=== PATIENT | male | born 1960 | race Hispanic/Latino ===

== ENCOUNTER 2018-08-15 10:09 | Inpatient (IN) | payer SELFPAY ==
[2018-08-15] VITALS (9 sets, daily range): BP systolic 125–165; BP diastolic 34–68
[~2018-08-15] VITALS: Ht 170.2 cm; Wt 130.7 kg
[2018-08-15] MEDS ORDERED: HYDRALAZINE HCL 20 MG/ML VIAL IV STA (10:24)
[2018-08-15] MEDS ORDERED: ASPIRIN 81 MG CHEW TAB PO ONE (10:30)
[2018-08-15] MEDS ORDERED: FUROSEMIDE INJ 10 MG/ML 4 ML VIAL IV ONE ×2 (10:30→11:30)
--- NOTE | 2018-08-15 10:32 | NUR ---
xray at bedside for cxr
[2018-08-15] MEDS ORDERED: ALBUTEROL SULF 0.083% NEB SOLN 3 ML NEB NEB STA (10:34)
[2018-08-15] MEDS ORDERED: IPRATROPIUM BROMIDE 0.02% 2.5 ML NEB NEB STA (10:34)
[2018-08-15 11:04] LABS: BASOPHILS # (AUTO) 0.1 (0.0-0.1); BASOPHILS % 0.4 % (0.0-1.0); EOSINOPHILS # (AUTO) 0.4 (0.0-0.4); EOSINOPHILS % 2.2 % (0.0-6.0); HEMATOCRIT 36.4 % (34.2-44.1); HEMOGLOBIN 11.8 g/dL (12.0-16.0); LYMPHOCYTES # (AUTO) 2.1 (1.0-3.2); LYMPHOCYTES % 11.7 % (18.0-39.1); MEAN CORPUSCULAR HEMOGLOBIN 29.1 pg (28-32); MEAN CORPUSCULAR HGB CONC 32.4 g/dL (31-35); MEAN CORPUSCULAR VOLUME 89.7 fL (81-99); MONOCYTES # (AUTO) 1.2 (0.2-0.8); MONOCYTES % 6.9 % (4.4-11.3); NEUTROPHILS % 78.2 % (38.7-80.0); PLATELET COUNT 335 x10e3/uL (140-360); RED BLOOD COUNT 4.06 x10e6/uL (3.6-5.1); RED CELL DISTRIBUTION WIDTH 14.3 % (11.7-14.4)
[2018-08-15] MEDS ORDERED: CEFTRIAXONE SOD 1 GM/NS 50 ML 50 ML IV STA (11:05)
[2018-08-15 11:12] LABS: INR 0.99; PROTHROMBIN TIME 13.6 seconds (11.9-14.5)
[2018-08-15 11:13] LABS: PARTIAL THROMBOPLASTIN TIME 47.5 seconds (23.8-35.5)
[2018-08-15] MEDS ORDERED: NITROGLYCERIN 0.4 MG SUBL ONE (11:15)
[2018-08-15] MEDS ORDERED: NITROGLYCERIN 0.4 MG SUBL SL ONE (11:15)
[2018-08-15 11:21] LABS: ALBUMIN 2.6 g/dL (3.5-5.0); ALBUMIN/GLOBULIN RATIO 0.6 (0.8-2.0); ANION GAP 11.1 mmol/L (8-16); CALCIUM 8.4 mg/dL (8.4-10.2); CREATININE, SERUM 1.18 mg/dL (0.57-1.11); MAGNESIUM 2.4 MG/DL (1.3-2.1); POTASSIUM 4.1 mmol/L (3.5-5.1)
[2018-08-15] MEDS ORDERED: NITROGLYCERIN 2% OINT 1 GM PKT TOP ONE ×2 (11:30)
--- NOTE | 2018-08-15 11:39 | Diagnostic Imaging Report ---
Chest, 1 view, 08/15/2018. History: Shortness of breath. Comparison: None available. Findings: The cardiomediastinal silhouette and pulmonary vasculature are prominent with diffuse hazy bilateral pulmonary opacities. There are no acute osseous or soft tissue abnormalities. Impression: Findings suggestive of CHF. Signed by: Fred Epstein on 08/15/2018 11:36 AM
[2018-08-15 11:43] LABS: CREATINE KINASE MB 3.1 ng/mL (0-5.0); THYROID STIMULATING HORMONE 3.226 uIU/mL (0.350-4.940)
[2018-08-15 12:28] LABS: ABG HCO3 23 mmol/L (23-28); ABG PCO2 42 mmHg (41-51); ABG PH 7.35 (7.31-7.41); ABG PO2 123 mmHg (80-105)
[2018-08-15 12:44] LABS: CLARITY,URINE CLEAR (CLEAR); COLOR,URINE YELLOW (YELLOW); LEUKOCYTE ESTERASE ,URINE NEGATIVE (NEGATIVE)
[2018-08-15 12:45] LABS: BILIRUBIN,URINE NEGATIVE (NEGATIVE); KETONES,URINE NEGATIVE (NEGATIVE); NITRITE,URINE NEGATIVE (NEGATIVE); PROTEIN,URINE DIPSTICK 2+ (NEGATIVE); URINE UROBILINOGEN 0.2 mg/dL (0.2 - 1)
[2018-08-15 12:53] LABS: BACTERIA,URINE FEW /HPF; EPITHELIAL CELLS,URINE RARE /LPF
[2018-08-15] MEDS ORDERED: SODIUM CHLORIDE FLUSH 10 ML SYR INJ PRN (13:45)
[2018-08-15] MEDS ORDERED: ALBUTEROL SULF 0.083% NEB SOLN 3 ML NEB NEB SCH (13:45)
[2018-08-15] MEDS ORDERED: DEXTROSE 50% SYRINGE 50 ML IV PRN (13:45)
--- OUTSIDE RECORDS SUMMARY | 2018-08-15 13:59 | XMS REPORT ---
Author [facility] Address Unknown Phone Unavailable Care Team Providers Care Stone Operator Name Role Phone PATTIEARIELA Thomas LILIANA Unavailable Unavailable Problems This patient has no known problems. Allergies, Adverse Reactions, Alerts This patient has no known allergies or adverse reactions. Medications This patient has no known medications. Results Test Description Test Time Test Comments Text Results Atomic Results Result Comments CHEST SINGLE (PORTABLE) 2018-08-15 11:35:00 [place] [address] Patient Name: PINKY RUIZ MR #: [id number] : 1960 Age/Sex: 58/F Req #: [id number] Adm Physician: Ordered by: CHICA HUNTER FLY WINDER Report #: [id number] Location: ER Room/Bed: Procedure: [id number] DX/CHEST SINGLE (PORTABLE) Exam Date: 08/15/18 Exam Time: 1035 REPORT STATUS: Signed Chest, 1 view, 08/15/2018. History: Shortne ss of breath. Comparison: None available. Findings: The cardiomediastinal silhouette and pulmonary vasculature are prominent with diffuse hazy bilateral pulmonary opacities. There are no acute osseous or soft tissue abnormalities. Impression: Findings suggestive of CHF. Signed by: Chica Epstein on 08/15/2018 11:36 AM Dictated By: CHICA EPSTEIN MD [id number] Transcribed By: EDNA on 08/15/18 113 COPY TO: CHICA HUNTER NP
[2018-08-15] MEDS: CEFTRIAXONE SOD 1 GM/NS 50 ML 50 ML IV SCH (14:53)
[2018-08-15] MEDS: ALBUTEROL SULF 0.083% NEB SOLN 3 ML NEB NEB SCH ×3 (15:05→23:44)
[2018-08-15 15:30] LABS: ABG PCO2 48 mmHg (41-51); ABG PH 7.36 (7.31-7.41)
[2018-08-15 15:31] LABS: ABG HCO3 27 mmol/L (23-28); ABG PO2 169 mmHg (80-105)
[2018-08-15] MEDS ORDERED: LABETALOL HCL 5 MG/ML 20ML VIAL IV PRN (16:30)
[2018-08-15] MEDS: INSULIN REGULAR, HUMAN 100 UNIT/1 ML 3ML VIAL SQ SCH ×2 (16:43→21:00)
[2018-08-15] MEDS: FUROSEMIDE INJ 10 MG/ML 2 ML VIAL IV SCH (16:49)
[2018-08-15] MEDS ORDERED: METOPROLOL SUCCINATE 50 MG TAB XL PO NR (17:00)
[2018-08-15] MEDS ORDERED: LISINOPRIL 20 MG TAB PO NR (17:00)
[2018-08-15] MEDS ORDERED: IPRATROPIUM BROMIDE 0.02% 2.5 ML NEB NEB SCH (18:00)
[2018-08-15] MEDS: IPRATROPIUM BROMIDE 0.02% 2.5 ML NEB NEB SCH (19:46)
[2018-08-15 19:57] LABS: CREATINE KINASE MB 2.6 ng/mL (0-5.0)
--- NOTE | 2018-08-15 20:08 | NUR ---
Received to 190 from ER. Placed on EKG, pulse ox & NBP for monitoring. Admission history, Initial admission assessment, Family history, Vaccine history done. on BIPAP with sats 100%. IV saline locked.
[2018-08-15] MEDS ORDERED: METOPROLOL SUCC50 MG PO (20:29)
[2018-08-15] MEDS ORDERED: METFORMIN HCL500 MG PO (20:29)
[2018-08-15] MEDS ORDERED: LASIX20 MG PO (20:29)
[2018-08-15] MEDS ORDERED: PNEUMOCOCCAL VACCINE POLYVALENT 23 MCG/0.5 ML VIAL IM SCH (20:50)
--- NOTE | 2018-08-15 23:03 | Consultation ---
DATE OF CONSULTATION: 08/15/2018 Cardiology Consultation INDICATION: Shortness of breath. HISTORY OF PRESENT ILLNESS: Mr. Keita is a 58-year-old gentleman with history of hypertension, hyperlipidemia, and diabetes mellitus, no past coronary artery disease or heart failure, comes into the emergency room with increasing shortness of breath. He has marked pulmonary edema with crackles on physical exam. PAST MEDICAL HISTORY: As listed above. SOCIAL HISTORY: The patient does not smoke. MEDICATIONS: Reviewed. REVIEW OF SYSTEMS: Unobtainable due to extreme shortness of breath. PHYSICAL EXAMINATION: VITAL SIGNS: Afebrile, heart rate is 105, and blood pressure is 188/83. CARDIOVASCULAR: Regular rhythm. No systolic murmur. Tachycardic. LUNGS: Fine coarse crackles bilaterally. Jugular venous pulse is elevated. LABORATORY DATA: Labs were reviewed. WBC count is 17,900. Creatinine 1.2. BNP 755. ASSESSMENT: Acute heart failure. RECOMMENDATIONS: Aggressive beta steph, DENG inhibitor, diuresis, intravenous control of blood pressure. Recheck of cardiac enzymes, rule out myocardial infarction. Echocardiogram will be obtained. I thank Dr. Urbina for this consultation. MD ERIKA Brush/FRANNY /[id number]
[2018-08-16] VITALS (29 sets, daily range): BP systolic 126–174; BP diastolic 49–125
[2018-08-16] MEDS: ALBUTEROL SULF 0.083% NEB SOLN 3 ML NEB NEB SCH ×6 (03:30→22:25)
[2018-08-16 06:02] LABS: BASOPHILS # (AUTO) 0.1 (0.0-0.1); BASOPHILS % 0.3 % (0.0-1.0); EOSINOPHILS # (AUTO) 0.2 (0.0-0.4); HEMATOCRIT 31.9 % (38.2-49.6); HEMOGLOBIN 10.4 g/dL (14.0-18.0); LYMPHOCYTES # (AUTO) 1.6 (1.0-3.2); LYMPHOCYTES % 10.4 % (18.0-39.1); MEAN CORPUSCULAR HEMOGLOBIN 29.5 pg (28-32); MEAN CORPUSCULAR HGB CONC 32.6 g/dL (31-35); MEAN CORPUSCULAR VOLUME 90.4 fL (81-99); MONOCYTES # (AUTO) 1.1 (0.2-0.8); MONOCYTES % 6.8 % (4.4-11.3); NEUTROPHILS # (AUTO) 12.7 (2.1-6.9); NEUTROPHILS % 80.9 % (38.7-80.0); PLATELET COUNT 276 x10e3/uL (140-360); RED BLOOD COUNT 3.53 x10e6/uL (4.3-5.7); RED CELL DISTRIBUTION WIDTH 14.6 % (11.7-14.4)
[2018-08-16 06:03] LABS: CREATINE KINASE MB 3.5 ng/mL (0-5.0)
[2018-08-16] MEDS ORDERED: PNEUMOCOCCAL VACCINE POLYVALENT 23 MCG/0.5 ML VIAL ONE (06:31)
[2018-08-16 06:32] LABS: ANION GAP 12.7 mmol/L (8-16); CALCIUM 7.9 mg/dL (8.4-10.2); CREATININE, SERUM 1.24 mg/dL (0.72-1.25); POTASSIUM 4.7 mmol/L (3.5-5.1)
--- NOTE | 2018-08-16 06:34 | NUR ---
Pneumovax 23 given to right deltoid.
[2018-08-16] MEDS: IPRATROPIUM BROMIDE 0.02% 2.5 ML NEB NEB SCH ×4 (07:00→22:55)
[2018-08-16] MEDS: INSULIN REGULAR, HUMAN 100 UNIT/1 ML 3ML VIAL SQ SCH ×4 (07:30→20:52)
[2018-08-16] MEDS: METFORMIN HCL 500 MG TAB PO SCH ×2 (08:19→18:00)
[2018-08-16] MEDS: FUROSEMIDE INJ 10 MG/ML 2 ML VIAL IV SCH (08:19)
[2018-08-16] MEDS ORDERED: AZITHROMYCIN 250 MG TAB PO STA (08:58)
[2018-08-16] MEDS ORDERED: LISINOPRIL 20 MG TAB PO SCH (09:00)
[2018-08-16] MEDS: FUROSEMIDE INJ 10 MG/ML 4 ML VIAL IV SCH ×2 (09:00→20:50)
[2018-08-16] MEDS: SPIRONOLACTONE 25 MG TAB PO SCH (09:13)
[2018-08-16] MEDS: THIAMINE HCL 100 MG TAB PO SCH (09:13)
[2018-08-16] MEDS: AZITHROMYCIN 250 MG TAB PO SCH (09:14)
[2018-08-16] MEDS: METOPROLOL SUCCINATE 50 MG TAB XL PO SCH (09:14)
[2018-08-16 09:22] LABS: % IRON SATURATION 10 % (15-50); IRON 21 ug/dL (65-175); TOTAL IRON BINDING CAPACITY 209 ug/dL (261-478); TRANSFERRIN 149 mg/dL (174-364)
--- NOTE | 2018-08-16 11:23 | NUR ---
HR DROPS DOWN TO 38 WHEN SLEEPING WITH BP 147/56
--- NOTE | 2018-08-16 11:56 | Consultation ---
DATE OF CONSULTATION: Pulmonary Consultation The patient of Dr. Urbina and Dr. Gutierres. Also followed at [facility]. Admitted with history of swelling and shortness of breath at night with gradual decline over the last five days. He was seen twice in the clinic and referred to the emergency room since failure to improve with oral Lasix. He has history of diabetes and hypertension, began seeing a doctor approximately two years ago when he was diagnosed. ALLERGIES: NO KNOWN ALLERGIES CURRENT MEDICATIONS: Lasix, Lopressor, and metformin. SOCIAL HISTORY: He drinks heavily one day a week, it has been his habit. Works in sales . He has had lung fluid and wheezing in the past, has had cough productive of yellow sputum. Nonsmoker. FAMILY HISTORY: Positive for hypertension and diabetes. PHYSICAL EXAMINATION: GENERAL: He is a burly white male, anxious, but no acute distress. VITAL SIGNS: Temperature 98.2, pulse 48, blood pressure 147/57, and respirations 18. HEAD: Normocephalic, atraumatic. NECK: Bull neck. LUNGS: Bilateral rales. HEART: Regular rhythm. ABDOMEN: Nontender. EXTREMITIES: Nonedematous. IMPRESSION: Hypertension, diastolic heart failure, superimposed pneumonia. We will add Zithromax. Continue diuretics. Control hypertension. Prophylactic Lovenox. Assess for sleep apnea. Thank you for this kind referral. MD RONEN Jimenez/FRANNY /[id number]
--- NOTE | 2018-08-16 12:15 | Progress Note ---
DATE: Cardiology Progress Note SUBJECTIVE: The patient is feeling overall better, mild shortness of breath, mild lower extremity swelling. OBJECTIVE: VITAL SIGNS: He is afebrile, heart rate is 65, respirations 16, blood pressure is 159/58, and oxygen saturation is 100% on 3 L nasal cannula. GENERAL: Well-appearing obese male. CARDIOVASCULAR: Regular rate and rhythm. No murmurs. LUNGS: Scattered rales at bases. ABDOMEN: Soft, obese, and nontender. EXTREMITIES: 1+ edema. CARDIOVASCULAR MEDICATIONS: Reviewed. LABORATORY DATA: Reviewed. Telemetry monitoring revealed episodes of sinus bradycardia. Echocardiogram showed preserved ventricular systolic function with grade 1 diastolic dysfunction. IMPRESSION: 1. Acute diastolic heart failure. 2. Leukocytosis. 3. Volume overload. 4. Hypertension. RECOMMENDATIONS: Continue current cardiovascular medications consisting of metoprolol, Aldactone, lisinopril, and Lasix IV. Continue monitor ins and outs. Monitor closely on telemetry. His echocardiogram showed preserved systolic function with grade 1 diastolic dysfunction. Infectious treatment per primary team. Harjeet Levine DO BM/MODL /[id number]
[2018-08-16] MEDS: CEFTRIAXONE SOD 1 GM/NS 50 ML 50 ML IV SCH (13:30)
[2018-08-16] MEDS ORDERED: CEFTRIAXONE SOD 1 GRAM/0.9% SOD CHL 50ML BAG IV SCH (13:45)
--- NOTE | 2018-08-16 14:00 | NUR ---
PATIENT AMBULATED TO TOILET WITHOUT ANY SOB. TOLERATED WELL
[2018-08-16] MEDS: ENOXAPARIN SOD INJ 40 MG/0.4 ML SYR SC SCH (18:00)
[2018-08-17] VITALS (21 sets, daily range): BP systolic 128–175; BP diastolic 52–114
[2018-08-17] MEDS: IPRATROPIUM BROMIDE 0.02% 2.5 ML NEB NEB SCH ×4 (03:27→18:55)
[2018-08-17] MEDS: ALBUTEROL SULF 0.083% NEB SOLN 3 ML NEB NEB SCH ×6 (03:27→22:40)
--- NOTE | 2018-08-17 03:46 | NUR ---
Called and spoke with Dr Palumbo. Reported pt is demonstrating heart rate of 42 to 54 consistently and SBPs are 160s- 170s. Order received for prn hydralazine.
[2018-08-17] MEDS: HYDRALAZINE HCL 20 MG/ML VIAL IV PRN ×3 (04:04→18:40)
[2018-08-17] MEDS: INSULIN REGULAR, HUMAN 100 UNIT/1 ML 3ML VIAL SQ SCH ×4 (07:30→21:00)
--- NOTE | 2018-08-17 08:00 | NUR ---
patient assisted out of bed to chair. patient denies shortness of breath, denies chest pain. vital signs remained stable and no changes in o2 sats or hr,
[2018-08-17] MEDS: METFORMIN HCL 500 MG TAB PO SCH ×2 (08:15→16:40)
[2018-08-17] MEDS: LISINOPRIL 20 MG TAB PO SCH ×2 (08:15→16:41)
[2018-08-17] MEDS: SPIRONOLACTONE 25 MG TAB PO SCH (08:15)
[2018-08-17] MEDS: METOPROLOL SUCCINATE 50 MG TAB XL PO SCH (08:16)
[2018-08-17] MEDS: AZITHROMYCIN 250 MG TAB PO SCH (08:16)
[2018-08-17] MEDS: FUROSEMIDE INJ 10 MG/ML 4 ML VIAL IV SCH ×2 (08:16→13:35)
[2018-08-17] MEDS: THIAMINE HCL 100 MG TAB PO SCH (08:16)
[2018-08-17 09:25] LABS: BASOPHILS # (AUTO) 0.1 (0.0-0.1); BASOPHILS % 0.6 % (0.0-1.0); EOSINOPHILS # (AUTO) 0.5 (0.0-0.4); HEMATOCRIT 36.2 % (38.2-49.6); HEMOGLOBIN 11.6 g/dL (14.0-18.0); LYMPHOCYTES # (AUTO) 1.7 (1.0-3.2); LYMPHOCYTES % 10.9 % (18.0-39.1); MEAN CORPUSCULAR HEMOGLOBIN 29.3 pg (28-32); MEAN CORPUSCULAR VOLUME 91.4 fL (81-99); MONOCYTES # (AUTO) 1.2 (0.2-0.8); MONOCYTES % 7.5 % (4.4-11.3); NEUTROPHILS # (AUTO) 11.8 (2.1-6.9); PLATELET COUNT 315 x10e3/uL (140-360); RED BLOOD COUNT 3.96 x10e6/uL (4.3-5.7); RED CELL DISTRIBUTION WIDTH 14.6 % (11.7-14.4)
[2018-08-17 09:45] LABS: ANION GAP 11.5 mmol/L (8-16); CALCIUM 9.5 mg/dL (8.4-10.2); CREATININE, SERUM 1.31 mg/dL (0.72-1.25); POTASSIUM 4.5 mmol/L (3.5-5.1)
--- NOTE | 2018-08-17 09:50 | Diagnostic Imaging Report ---
EXAMINATION: CHEST SINGLE (PORTABLE) INDICATION: Pulmonary edema. COMPARISON: Chest radiograph 08/15/2018. FINDINGS: TUBES and LINES: None. LUNGS: Lung volumes are slightly increased from the prior study. There are slightly improved bilateral perihilar and interstitial opacities. There are patchy opacities at lung bases. PLEURA: Trace bilateral pleural effusions. HEART AND MEDIASTINUM: The cardiomediastinal silhouette is moderately enlarged. BONES AND SOFT TISSUES: No acute osseous abnormality. UPPER ABDOMEN: No free air under the diaphragm. IMPRESSION: Moderate cardiomegaly with slightly improved pulmonary interstitial and alveolar edema. Signed by: Dr. Dorothy Almonte MD on 08/17/2018 9:47 AM
--- NOTE | 2018-08-17 11:25 | NUR ---
DISCONTINUED MARCELO CATHETER PER PROTOCOL. PATIENT DUE TO VOID
[2018-08-17] MEDS: CEFTRIAXONE SOD 1 GM/NS 50 ML 50 ML IV SCH (13:35)
--- NOTE | 2018-08-17 14:12 | NUR ---
Nutrition Screen Note RD Recommendation for Physician: -Continue cardiac diet as ordered -RD provided education on heart healthy diet on 08/17 Plan of Care: RD following, monitoring for tolerance and adequacy, diet education Nutrition reason for involvement: Diagnosis Primary Diagnose(s): 1. Acute diastolic heart failure. 2. Leukocytosis. 3. Volume overload. PMH: hypertension, hyperlipidemia, and diabetes mellitus Ht: 67in Wt: 295.44lb BMI: 46.3kg/m2 IBW: 148lb RD Assessment: (08/17/2018) Chart reviewed. Labs and meds reviewed. 58yo M, who was admitted for SOB. Visited pt in the room. Pt reported good appetite without any GI complains. Pt denied any chewing or swallowing difficulty. Pt denied any hx of CAD or CHF. No recent weight loss reported. RD offered diet education on healthy heart diet and pt was agreeable with plan. Will continue to monitor and follow. Current Diet: cardiac diet Malnutrition Evaluation (08/17/2018) The patient does not meet criteria for a specified degree of malnutrition at this time. Will re-evaluate at follow-up as appropriate. Diet Education Needs Assessment: Diet education indicated, pt was agreeable with plan. Learner(s): pt Time spent: 25mins Barriers: No barriers identified. Cultural/Language Modifications: No cultural/language modifications noted. Pt speaks Croatian. Readiness: Acceptance Method: Discussion, handouts Topics: Heart failure nutrition therapy (Sodium, fluids, weight management) Understanding/Compliance: Expect fair understanding/compliance from pt. Will benefit from reinforcement. All questions have been answered. Nutrition Care Level: low Signed: Lisa Butts, MS, RD, LD
[2018-08-17] MEDS: ENOXAPARIN SOD INJ 40 MG/0.4 ML SYR SC SCH (16:41)
--- NOTE | 2018-08-17 18:44 | Progress Note ---
DATE: Cardiology Progress Note SUBJECTIVE: The patient feeling overall better. Still reports some mild shortness of breath and lower extremity swelling. OBJECTIVE: VITAL SIGNS: Temperature is 97.5, heart rate 66, respirations 19, blood pressure is 162/56, ox saturation 100% on 2 L nasal cannula. GENERAL: Well appearing, well built, no apparent distress, seated at bedside. CARDIOVASCULAR: Regular rate and rhythm. No murmurs. LUNGS: Scattered rales from the midportion to the bases. ABDOMEN: Soft, obese, nontender. EXTREMITIES: 2+ pitting edema. CARDIOVASCULAR MEDICATIONS: Reviewed. LABORATORY VALUES: Reviewed. White blood cell count 15, creatinine 1.31. Chest x-ray shows moderate cardiomegaly with slightly improved pulmonary interstitial and alveolar edema. Telemetry monitoring revealed sinus bradycardia with normal sinus rhythm. IMPRESSION: 1. Acute diastolic heart failure. 2. Leukocytosis. 3. Volume overload. 4. Hypertension. 5. Obesity. RECOMMENDATIONS: Continue current cardiovascular medications and increase Lasix to q.8 hours intravenously. Continue to monitor his ins and outs. Continue to monitor closely on telemetry. Echocardiogram showed preserved left ventricular systolic function with grade 1 diastolic dysfunction. Continue infectious treatment per primary team. DO ALLI Castro/MODL /[id number]
--- NOTE | 2018-08-17 21:00 | NUR ---
patient brought from icu, patient stable. safety and fall precautions maintained: bed in lowest position and locked, needed items beside and patient encouraged to call nurses for any assistance needed.
[2018-08-18] VITALS (9 sets, daily range): BP systolic 142–157; BP diastolic 54–78
[2018-08-18] MEDS: FUROSEMIDE INJ 10 MG/ML 4 ML VIAL IV SCH ×4 (00:36→21:37)
[2018-08-18] MEDS: ALBUTEROL SULF 0.083% NEB SOLN 3 ML NEB NEB SCH ×6 (02:05→23:08)
[2018-08-18] MEDS: IPRATROPIUM BROMIDE 0.02% 2.5 ML NEB NEB SCH ×4 (02:05→19:30)
[2018-08-18 05:04] LABS: BASOPHILS # (AUTO) 0.1 (0.0-0.1); BASOPHILS % 0.6 % (0.0-1.0); EOSINOPHILS # (AUTO) 0.6 (0.0-0.4); EOSINOPHILS % 3.9 % (0.0-6.0); HEMATOCRIT 32.7 % (38.2-49.6); HEMOGLOBIN 10.7 g/dL (14.0-18.0); LYMPHOCYTES # (AUTO) 2.2 (1.0-3.2); LYMPHOCYTES % 15.5 % (18.0-39.1); MEAN CORPUSCULAR HEMOGLOBIN 30.1 pg (28-32); MEAN CORPUSCULAR HGB CONC 32.7 g/dL (31-35); MEAN CORPUSCULAR VOLUME 91.9 fL (81-99); MONOCYTES # (AUTO) 1.2 (0.2-0.8); MONOCYTES % 8.4 % (4.4-11.3); NEUTROPHILS # (AUTO) 9.8 (2.1-6.9); NEUTROPHILS % 70.3 % (38.7-80.0); PLATELET COUNT 297 x10e3/uL (140-360); RED BLOOD COUNT 3.56 x10e6/uL (4.3-5.7); RED CELL DISTRIBUTION WIDTH 14.8 % (11.7-14.4)
[2018-08-18 05:22] LABS: ANION GAP 11.1 mmol/L (8-16); CALCIUM 8.1 mg/dL (8.4-10.2); CREATININE, SERUM 1.24 mg/dL (0.72-1.25); POTASSIUM 4.1 mmol/L (3.5-5.1)
--- NOTE | 2018-08-18 05:40 | Diagnostic Imaging Report ---
Examination: Single AP view of the chest. COMPARISON: 08/17/2018 INDICATION: Congestive heart failure DISCUSSION: Lines/tubes: None. Lungs: Mildly decreased interstitial and alveolar opacities predominantly in the lower lungs. Decreased venous congestion. Pleura: Bilateral effusions. Heart and mediastinum: Cardiomegaly. Bones and soft tissues: No acute bony abnormalities. IMPRESSION: Cardiomegaly with decreased edema Signed by: Dr. Adelso Lewis M.D. on 08/18/2018 5:36 AM
--- NOTE | 2018-08-18 07:10 | NUR ---
Pt received resting in bed with BIPAP at bedside. Alert and oriented x4. Oriented to staff and surroundings, encouraged to press call eng if help needed. Pt verbalized understanding of teaching. Will monitor
[2018-08-18] MEDS: INSULIN REGULAR, HUMAN 100 UNIT/1 ML 3ML VIAL SQ SCH ×4 (07:30→20:01)
--- NOTE | 2018-08-18 08:20 | NUR ---
All meds given as ordered. Pt educated regarding Heart failure. Handout given. Will monitor
[2018-08-18] MEDS: METFORMIN HCL 500 MG TAB PO SCH ×2 (08:22→17:39)
[2018-08-18] MEDS: PANTOPRAZOLE SOD 40 MG TABEC PO SCH (08:22)
[2018-08-18] MEDS: LISINOPRIL 20 MG TAB PO SCH ×2 (08:22→17:40)
[2018-08-18] MEDS: SPIRONOLACTONE 25 MG TAB PO SCH (08:22)
[2018-08-18] MEDS: THIAMINE HCL 100 MG TAB PO SCH (08:22)
[2018-08-18] MEDS: AZITHROMYCIN 250 MG TAB PO SCH (08:23)
--- NOTE | 2018-08-18 09:02 | Progress Note ---
DATE: SUBJECTIVE: The patient did fairly well overnight and states he is breathing is better. OBJECTIVE: VITAL SIGNS: Temperature 98.1, pulse 61, blood pressure 143/61, and sats are 100%. GENERAL: In no apparent distress. CARDIOVASCULAR: Regular rate and rhythm. LUNGS: Decreased breath sounds bilaterally. ABDOMEN: Good bowel sounds. Soft and nontender. EXTREMITIES: No clubbing or cyanosis. NEUROLOGIC: No focal. ASSESSMENT AND PLAN: 1. Jmmne-xa-fvgkpry diastolic heart failure. Continue with current medications. 2. Hypertension. Continue with current medications. 3. Acute respiratory failure with hypoxia. We will continue current care with Pulmonary. 4. Reflux disease. Continue with his medication. 5. Diabetes. Continue with his medication, monitoring of the sugar. 6. Leukocytosis. Continue to monitor. 7. Chronic kidney disease, stage 3. Continue to monitor. Please see hospital chart for full details. MD FELISA Montilla/FRANNY /[id number]
[2018-08-18] MEDS: METOPROLOL SUCCINATE 50 MG TAB XL PO SCH (09:27)
--- NOTE | 2018-08-18 10:31 | Diagnostic Imaging Report ---
EXAMINATION: CT scan of the chest without contrast. TECHNIQUE: Spiral CT images of the chest were performed from the lung apices to the level of the adrenal glands. No intravenous contrast was administered per referring physician request. Coronal and sagittal reformatted images were obtained. COMPARISON: Chest radiograph earlier 08/18/2018 CLINICAL HISTORY:Pneumonia DISCUSSION: ABSENCE OF INTRAVENOUS CONTRAST DECREASES SENSITIVITY FOR DETECTION OF FOCAL LESIONS AND VASCULAR PATHOLOGY. LUNGS AND AIRWAYS: Advanced cystic bronchiectasis affecting the right middle lobe, left lower lobe, and to a slightly lesser extent the lingula and anterior and lateral segments of the right lower lobe. The inferior aspects of the right middle lobe and left lower lobe are essentially entirely replaced by air-filled cystic spaces. Superimposed groundglass and nodular opacities predominantly in a peribronchovascular distribution within the right and left upper lobes and right lower lobe. 10 mm solid nodule lateral segment right lower lobe seen on series 2 image 88. More dense consolidation of the posterior segment of the right lower lobe. PLEURA: Trace left and small right pleural effusions. No pneumothorax. HEART AND MEDIASTINUM: Visualized thyroid gland appears normal. Hno pericardial effusion. Heart size is normal. Atherosclerotic calcification of the right coronary artery and left anterior descending coronary artery. No ectasia or aneurysmal dilatation of the thoracic aorta. Pulmonary outflow tract is of normal caliber. LYMPH NODES: Enlarged right upper paratracheal node measures 1.6 cm short axis. Enlarged subcarinal node measures 2.2 cm short axis. Evaluation of hilar lymphadenopathy is limited in the absence of intravenous contrast. ABDOMEN: Visualized portions of the liver, spleen, adrenals, and pancreatic tail are unremarkable. BONES AND SOFT TISSUES: No acute bony abnormalities. Asymmetric right-sided gynecomastia. IMPRESSION: Advanced cystic bronchiectasis involving the left lower lobe, lingula, right middle lobe, and right lower lobe, likely idiopathic or postinfectious. Differential diagnosis also includes underlying collagen vascular disease (SLE, Sjogren syndrome, rheumatoid arthritis). Associated groundglass and nodular opacities likely reflect superimposed multifocal pneumonia with reactive mediastinal lymphadenopathy, small right and trace left pleural effusions. Follow-up CT scan of the chest in 8-12 weeks may be of benefit to assess for resolution. Asymmetric right-sided gynecomastia. Correlate with physical exam and consider outpatient diagnostic mammography for further evaluation. Signed by: Dr. Peter Frye M.D. on 08/18/2018 10:28 AM
--- NOTE | 2018-08-18 11:20 | NUR ---
Visit made by the Spiritual Care Department Pastoral Visitor, Dioni Gramajo. PV provided pastoral presence, hospitality, and supportive listening. Pastoral Visitor informed pt/family of the scope of Rehabilitation Technician Services and availability. BEAR LOPEZ [place] Spiritual Care Department O: [phone] Pager: [phone] ([phone] number calling from)
[2018-08-18] MEDS: AMLODIPINE BESYLATE 5 MG TAB PO SCH (11:39)
[2018-08-18] MEDS ORDERED: SODIUM CHLORIDE 0.9% 250ML 250 ML ONE (12:56)
[2018-08-18] MEDS: CEFTRIAXONE SOD 1 GM/NS 50 ML 50 ML IV SCH (13:03)
[2018-08-18] MEDS: ENOXAPARIN SOD INJ 40 MG/0.4 ML SYR SC SCH (17:40)
--- NOTE | 2018-08-18 19:04 | NUR ---
Pt given sputum collection cups for AFB. Handoff given to oncoming shift
--- NOTE | 2018-08-18 19:25 | NUR ---
Received patient from day nurse, patient stable. patient encouraged to call for help, bed in lowest position and locked needed items beside bed
--- NOTE | 2018-08-18 20:39 | Progress Note ---
DATE: SUBJECTIVE: The patient is feeling better. Reports reduction of his lower extremity swelling and improvement of his shortness of breath. OBJECTIVE: VITAL SIGNS: Temperature is 98.3, heart rate 70, respirations 20, blood pressure is 157/56, and ox saturation 97% on 2 L nasal cannula. GENERAL: Well appearing, well built, no apparent distress. CARDIOVASCULAR: Regular rate and rhythm. LUNGS: Mild rales at bases. ABDOMEN: Soft, obese, nontender. EXTREMITIES: 1+ edema. CARDIOVASCULAR MEDICATIONS: Reviewed. LABORATORY DATA: Reviewed. Telemetry monitoring showed episodes of sinus bradycardia. IMPRESSION: 1. Acute diastolic heart failure. 2. Leukocytosis. 3. Volume overload. 4. Hypertension. 5. Obesity. RECOMMENDATIONS: The patient has had good urine output on Lasix IV q.8 hours. Continue this through tomorrow morning. If the patient feels better and is able to ambulate without oxygen, consider switching to p.o. Lasix 40 mg b.i.d. Continue all other cardiovascular medications. Continue to closely monitor on telemetry. DO ALLI Castro/MODL /[id number]
[2018-08-19] MEDS: ALBUTEROL SULF 0.083% NEB SOLN 3 ML NEB NEB SCH ×6 (03:05→23:05)
[2018-08-19] MEDS: IPRATROPIUM BROMIDE 0.02% 2.5 ML NEB NEB SCH ×4 (03:05→18:34)
[2018-08-19 04:25] VITALS: BP 152/79
[2018-08-19] MEDS: FUROSEMIDE INJ 10 MG/ML 4 ML VIAL IV SCH ×2 (06:19→13:55)
--- NOTE | 2018-08-19 06:58 | NUR ---
patient endorsed to day nurse.
[2018-08-19 07:05] VITALS: BP 158/81
--- NOTE | 2018-08-19 07:10 | NUR ---
Report received from outgoing nurse. Emotional support given. Call eng within reach. Will monitor
[2018-08-19] MEDS: INSULIN REGULAR, HUMAN 100 UNIT/1 ML 3ML VIAL SQ SCH ×4 (07:30→20:27)
[2018-08-19] MEDS ORDERED: CLONIDINE HCL 0.1 MG TAB PO PRN (08:00)
--- NOTE | 2018-08-19 08:35 | NUR ---
All meds given as ordered. Second AFB sputum sent to lab. Emotional support given. Call eng within reach. Will monitor
[2018-08-19] MEDS: SPIRONOLACTONE 25 MG TAB PO SCH (08:37)
[2018-08-19] MEDS: PANTOPRAZOLE SOD 40 MG TABEC PO SCH (08:37)
[2018-08-19] MEDS: METFORMIN HCL 500 MG TAB PO SCH ×2 (08:37→17:18)
--- NOTE | 2018-08-19 08:37 | Progress Note ---
DATE: SUBJECTIVE: This is a 58-year-old gentleman with a newly diagnosis of acute diastolic dysfunction, diabetes mellitus, hypertension, respiratory distress, comes in and the patient is currently on IV Lasix and diuresis. Still feeling short of breath. From bnus-ht-guwp, blood pressure has been running up according to nursing staff. The patient is currently feeling better compared to when he came into the ER. OBJECTIVE: VITAL SIGNS: Temperature is 98.6, pulse of 52, respirations of 22, blood pressure is 152/79, and pulse oximetry 96% on 2 L of oxygen. HEENT: Normocephalic, atraumatic. CVS: S1, S2 distant. Regular rate and rhythm. ABDOMEN: Nontender, nondistended. EXTREMITIES: Positive for 1+ edema. MEDICATIONS: He is on albuterol and Atrovent treatments. The patient is on Lovenox for DVT prophylaxis, metformin 1000 mg twice a day, amlodipine 5 mg daily, metoprolol 50 mg daily succinate. Currently on antibiotics of azithromycin and Rocephin. The patient is also on aldactone and thiamine. LABORATORY VALUES: [place] white count was 40080, hemoglobin of 10.7, hematocrit of 32.7. Chemistries show sodium 141, potassium 4.1, BUN of 37, creatinine of 1.24. The patient's immunological workup is pending. Coags were normal on the day of arrival. ASSESSMENT: 1. Nvjko-aj-uoanxof diastolic dysfunction. 2. Leukocytosis. 3. Morbid obesity. 4. Obesity hypoventilation syndrome. 5. Volume overload. 6. Hypertension. 7. Diabetes mellitus. PLAN: Plan is to continue with diuresis. The patient will be switched to p.o. today, p.r.n. hypertensive medication will be added clonidine 0.1. Continue other CV medications at this time. Continue on beta-blockade and also on ARB's. Switched to p.o. Lasix today. Continue to monitor the patient. Further recommendation per clinical course. For morbid obesity, the patient has been counseled on weight control and diet control. MD LION Austin/BAML /[id number]
[2018-08-19] MEDS: AMLODIPINE BESYLATE 5 MG TAB PO SCH (08:38)
[2018-08-19] MEDS: AZITHROMYCIN 250 MG TAB PO SCH (08:38)
[2018-08-19] MEDS: LISINOPRIL 20 MG TAB PO SCH ×2 (08:38→17:18)
[2018-08-19] MEDS: METOPROLOL SUCCINATE 50 MG TAB XL PO SCH (08:38)
[2018-08-19] MEDS: THIAMINE HCL 100 MG TAB PO SCH (08:38)
[2018-08-19 11:10] VITALS: BP 146/75
[2018-08-19] MEDS ORDERED: AMLODIPINE BESYLATE 5 MG TAB PO SCH (13:00)
[2018-08-19] MEDS: CEFTRIAXONE SOD 1 GM/NS 50 ML 50 ML IV SCH (13:55)
--- NOTE | 2018-08-19 15:23 | Progress Note ---
DATE: Cardiology Progress Note SUBJECTIVE: The patient is feeling overall better. Denies any shortness of breath. Reports improvement in left lower extremity swelling. OBJECTIVE: VITAL SIGNS: Temperature is 97.8, heart rate 76, respirations 18, blood pressure is 146/75, and oxygen saturation 98% on 2 L nasal cannula. GENERAL: Well appearing, well built, in no apparent distress. CARDIOVASCULAR: Regular rate and rhythm. LUNGS: Scattered rales at bases. ABDOMEN: Soft, nontender, and nondistended. NEUROLOGIC: No focal deficits noted. EXTREMITIES: 1+ edema with chronic venous stasis dermatitis. CARDIOVASCULAR MEDICATIONS: Reviewed. LABORATORY DATA: Reviewed. Kidney function is 1.2. Telemetry monitoring reveals normal sinus rhythm. IMPRESSION: 1. Acute diastolic heart failure. 2. Leukocytosis. 3. Volume overload. 4. Hypertension. 5. Obesity. 6. Venous insufficiency. RECOMMENDATIONS: He has had excellent diuresis with intravenous Lasix. This was changed to oral medications today. Continue all other current cardiovascular medications. He was hypertensive, so I added amlodipine 5 mg daily for this. Can increase this as tolerated. Continue to monitor closely on telemetry. If the patient is hemodynamically stable and able to wean off oxygen, he may be discharged tomorrow. Harjeet Levine DO BM/MODL /[id number]
[2018-08-19 16:30] VITALS: BP 146/76
[2018-08-19] MEDS: ENOXAPARIN SOD INJ 40 MG/0.4 ML SYR SC SCH (17:18)
[2018-08-19 19:39] VITALS: BP 152/58
[2018-08-19 19:42] VITALS: BP 152/58
--- NOTE | 2018-08-19 21:04 | NUR ---
called and spoke with dr Levine, clarified Lasix order, per MD, change Lasix to 40 md PO BID. order carried out.
[2018-08-19] MEDS: FUROSEMIDE 40 MG TAB PO SCH (21:17)
[2018-08-20] VITALS (7 sets, daily range): BP systolic 145–154; BP diastolic 58–74
[2018-08-20] MEDS: ALBUTEROL SULF 0.083% NEB SOLN 3 ML NEB NEB SCH ×6 (04:17→22:55)
[2018-08-20] MEDS: IPRATROPIUM BROMIDE 0.02% 2.5 ML NEB NEB SCH ×5 (04:17→22:55)
--- NOTE | 2018-08-20 05:07 | NUR ---
sent sputum sample to lab
[2018-08-20 05:10] LABS: BASOPHILS % 0.3 % (0.0-1.0); EOSINOPHILS # (AUTO) 0.6 (0.0-0.4); EOSINOPHILS % 4.8 % (0.0-6.0); HEMATOCRIT 33.2 % (38.2-49.6); HEMOGLOBIN 10.4 g/dL (14.0-18.0); LYMPHOCYTES # (AUTO) 2.7 (1.0-3.2); LYMPHOCYTES % 20.4 % (18.0-39.1); MEAN CORPUSCULAR HEMOGLOBIN 29.1 pg (28-32); MEAN CORPUSCULAR HGB CONC 31.3 g/dL (31-35); MONOCYTES # (AUTO) 1.2 (0.2-0.8); MONOCYTES % 9.3 % (4.4-11.3); NEUTROPHILS # (AUTO) 8.4 (2.1-6.9); NEUTROPHILS % 64.4 % (38.7-80.0); PLATELET COUNT 301 x10e3/uL (140-360); RED BLOOD COUNT 3.57 x10e6/uL (4.3-5.7); RED CELL DISTRIBUTION WIDTH 14.3 % (11.7-14.4)
[2018-08-20 05:38] LABS: ALBUMIN 2.6 g/dL (3.5-5.0); ALBUMIN/GLOBULIN RATIO 0.6 (0.8-2.0); ANION GAP 11.8 mmol/L (8-16); CALCIUM 8.3 mg/dL (8.4-10.2); CREATININE, SERUM 1.25 mg/dL (0.72-1.25); POTASSIUM 4.8 mmol/L (3.5-5.1)
[2018-08-20] MEDS: FUROSEMIDE 40 MG TAB PO SCH ×2 (06:00→16:17)
--- NOTE | 2018-08-20 07:10 | NUR ---
Pt received resting in bed. No s/s of respiratory distress noted or voiced. Vitals stable. Will monitor
--- NOTE | 2018-08-20 07:25 | Progress Note ---
DATE: SUBJECTIVE: This is a 58-year-old gentleman, comes in with congestive heart failure, psdsv-sz-ybutziu diastolic and also shortness of breath with new diagnosis of diabetes mellitus. Currently, the patient is on albuterol, Atrovent neb treatments. He is on azithromycin, ceftriaxone, clonidine, insulin, ipratropium bromide, metformin, metoprolol, pantoprazole, and the patient is also on Aldactone. OBJECTIVE: VITAL SIGNS: Temperature is 98.1, pulse of 67, respirations of 17, blood pressure is 149/64, pulse oximetry of 99% on room air. HEENT: Normocephalic, atraumatic. Pupils are reactive to light and accommodation. CVS: S1, S2 distant. Regular rate and rhythm. ABDOMEN: Nontender, nondistended. LUNGS: Decreased air entry into all lung olmos, but a few inspiratory crackles on the left side. EXTREMITIES: No clubbing. Positive for edema. LABORATORY DATA: The [place] [address], hemoglobin of 10.4, hematocrit of 33.2. Chemistry shows sodium of 143, potassium 4.3. BUN is 11.8 and creatinine of 32. Coags are essentially normal. Urine cultures are negative so far. No growth. The patient's blood culture also negative. Acid-fast bacilli are pending at this time. IgG was 1722. ASSESSMENT: 1. Acute diastolic heart failure. 2. Leukocytosis. 3. Pneumonia. 4. Hypertension. 5. Obstructive sleep apnea. 6. Hypoxia. 7. Respiratory failure, better. PLAN: Plan is to continue with diuresis. The patient has been changed to oral medication. The patient is currently on azithromycin and Rocephin. We will continue the same. Amlodipine has been added to his blood pressure regimen too. Currently, the white count still stays high and the patient is clinically looking better. We will continue to monitor the patient. Further recommendation per clinical course. DISPOSITION: The patient can be discharged today depending on pending AFB cultures. MD BECKY AustinJ/MODL /[id number]
[2018-08-20] MEDS: INSULIN REGULAR, HUMAN 100 UNIT/1 ML 3ML VIAL SQ SCH ×4 (07:30→21:00)
--- NOTE | 2018-08-20 08:10 | NUR ---
All meds given as ordered. Will monitor
[2018-08-20] MEDS: THIAMINE HCL 100 MG TAB PO SCH (08:16)
[2018-08-20] MEDS: METOPROLOL SUCCINATE 50 MG TAB XL PO SCH (08:16)
[2018-08-20] MEDS: LISINOPRIL 20 MG TAB PO SCH ×2 (08:16→16:17)
[2018-08-20] MEDS: AZITHROMYCIN 250 MG TAB PO SCH (08:16)
[2018-08-20] MEDS: SPIRONOLACTONE 25 MG TAB PO SCH (08:16)
[2018-08-20] MEDS: PANTOPRAZOLE SOD 40 MG TABEC PO SCH (08:16)
[2018-08-20] MEDS: METFORMIN HCL 500 MG TAB PO SCH ×2 (08:16→16:16)
[2018-08-20] MEDS ORDERED: AMLODIPINE BESYLATE 10 MG TAB PO SCH (09:00)
--- NOTE | 2018-08-20 16:12 | Progress Note ---
DATE: 08/20/2018 Cardiology Progress Note SUBJECTIVE: The patient is feeling overall better. His shortness of breath and lower extremity swelling have improved. OBJECTIVE: VITAL SIGNS: Temperature is 97.4, heart rate 69, respirations 16, blood pressure is 154/74, and oxygen saturation is 100% on room air. GENERAL: Well appearing, well built, in no apparent distress. CARDIOVASCULAR: Regular rate and rhythm. LUNGS: Mildly decreased breath sounds with scattered rales at the bases. ABDOMEN: Soft, nontender, nondistended. EXTREMITIES: Trace to 1+ edema. CARDIOVASCULAR MEDICATIONS: Reviewed. LABORATORY DATA: Reviewed. In's and out's show accumulative net negative of 8 L. TELEMETRY: Monitoring revealed normal sinus rhythm. IMPRESSION: 1. Acute diastolic heart failure. 2. Leukocytosis. 3. Volume overload. 4. Hypertension. 5. Obesity. 6. Venous insufficiency. RECOMMENDATIONS: The patient's Lasix was transitioned to oral medication today. Continue all other current cardiovascular medications. Amlodipine was added for better blood pressure control. The patient is successfully weaned off oxygen. He may be discharged from a cardiovascular standpoint with outpatient followup on current medication regimen. Harjeet Levine DO BM/MODL /[id number]
[2018-08-20] MEDS: CEFTRIAXONE SOD 1 GM/NS 50 ML 50 ML IV SCH (16:16)
[2018-08-20] MEDS: ENOXAPARIN SOD INJ 40 MG/0.4 ML SYR SC SCH (16:17)
--- NOTE | 2018-08-20 19:00 | NUR ---
Report and rounds completed. Patient in bed watching TV. Call light within reach. Will continue to monitor.
--- NOTE | 2018-08-20 22:00 | NUR ---
Patient sleeping, 02 sat 88%. Encouraged patient to put bipap on while sleeping and patient agreed. Bipap in place, 02 sat 99%. Will continue to monitor.
[2018-08-21] VITALS: BP 132/43
[2018-08-21] MEDS: ALBUTEROL SULF 0.083% NEB SOLN 3 ML NEB NEB SCH (02:26)
[2018-08-21 04:00] VITALS: BP 146/61
[2018-08-21] MEDS: FUROSEMIDE 40 MG TAB PO SCH (05:37)
--- NOTE | 2018-08-21 07:10 | Progress Note ---
DATE: SUBJECTIVE: The patient is here for cystic fibrosis and exacerbation of bronchiectasis. The patient also has acute diastolic dysfunction. Currently, the patient is asymptomatic. No chest pain. No shortness of breath. Feels much better after diuresis. The patient used BiPAP last night. The patient's oxygenation is good without O2 supplementation. OBJECTIVE: VITAL SIGNS: Temperature is 97.6, pulse of 68, blood pressure is 146/61, pulse oximetry of 97%. HEENT: Normocephalic, atraumatic. Pupils are reactive to light and accommodation. CVS: S1 and S2 distant. ABDOMEN: Nontender and nondistended. EXTREMITIES: No clubbing. No cyanosis. Positive for trace edema, LUNGS: Decreased air entry. LABORATORY VALUES: None done today. MICROBIOLOGY: AFB cultures are still pending. Gram stain shows usual respiratory laney. IMAGING STUDIES: None done since the . The CT showing bronchiectasis. ASSESSMENT: 1. Acute diastolic heart failure. Continue with Lasix. 2. Leukocytosis, we will check it today. 3. Pneumonia. We will send the patient home on Levaquin. 4. Hypertension. Continue with lisinopril, Aldactone, and Lasix. 5. Obstructive sleep apnea. He will need a sleep study as an outpatient. 6. Hypoxia, better respiratory failure. PLAN: Plan is to discharge the patient today depending on the blood work. The patient did show some signs of worsening of renal failure. We will check the blood work today. Further recommendation per clinical course. If the patient is discharged, the patient has been advised to see primary care physician in about a weeks' time. Discharge medicine includes metformin too. Again, the patient was asked to see primary care physician in a weeks' time to follow up with labs. MD BECKY AustinJ/MODL /[id number]
[2018-08-21] MEDS: INSULIN REGULAR, HUMAN 100 UNIT/1 ML 3ML VIAL SQ SCH (07:30)
[2018-08-21] MEDS: PANTOPRAZOLE SOD 40 MG TABEC PO SCH (07:44)
[2018-08-21] MEDS: METFORMIN HCL 500 MG TAB PO SCH (07:45)
[2018-08-21] MEDS ORDERED: CIPRO500 MG PO (07:52)
[2018-08-21] MEDS ORDERED: METOPROLOL SUCC50 MG PO (07:57)
[2018-08-21 08:23] LABS: BASOPHILS # (AUTO) 0.1 (0.0-0.1); BASOPHILS % 0.4 % (0.0-1.0); EOSINOPHILS # (AUTO) 0.7 (0.0-0.4); EOSINOPHILS % 5.9 % (0.0-6.0); HEMATOCRIT 34.1 % (38.2-49.6); HEMOGLOBIN 11.1 g/dL (14.0-18.0); LYMPHOCYTES # (AUTO) 2.3 (1.0-3.2); LYMPHOCYTES % 18.2 % (18.0-39.1); MEAN CORPUSCULAR HEMOGLOBIN 29.4 pg (28-32); MEAN CORPUSCULAR HGB CONC 32.6 g/dL (31-35); MEAN CORPUSCULAR VOLUME 90.2 fL (81-99); MONOCYTES # (AUTO) 1.1 (0.2-0.8); MONOCYTES % 9.1 % (4.4-11.3); NEUTROPHILS # (AUTO) 8.3 (2.1-6.9); NEUTROPHILS % 65.7 % (38.7-80.0); PLATELET COUNT 330 x10e3/uL (140-360); RED BLOOD COUNT 3.78 x10e6/uL (4.3-5.7); RED CELL DISTRIBUTION WIDTH 14.3 % (11.7-14.4)
[2018-08-21 08:43] LABS: ALANINE AMINOTRANSFERASE 55 IU/L (0-55); ALBUMIN 2.7 g/dL (3.5-5.0); ALBUMIN/GLOBULIN RATIO 0.6 (0.8-2.0); ALKALINE PHOSPHATASE 84 IU/L (40-150); ANION GAP 11.2 mmol/L (8-16); BLOOD UREA NITROGEN 29 mg/dL (7-26); BUN/CREATININE RATIO 25 (6-25); CALCIUM 8.7 mg/dL (8.4-10.2); CARBON DIOXIDE 33 mmol/L (22-29); CHLORIDE 102 mmol/L (98-107); CREATININE, SERUM 1.17 mg/dL (0.72-1.25); EST GLOMERULAR FILTRATION RATE > 60 ML/MIN (60-); GLUCOSE 89 mg/dL (74-118); POTASSIUM 5.2 mmol/L (3.5-5.1); SODIUM 141 mmol/L (136-145)
--- NOTE | 2018-08-21 09:05 | NUR ---
spoke with Dr. Martin (w/Dr. Urbina), masteray to discharge patient home with prescriptions and discharge instructions.
--- NOTE | 2018-08-21 09:06 | NUR ---
notified other consults of patient discharge
--- NOTE | 2018-08-21 09:17 | NUR ---
GAVE RESOURCE PACKET FOR COMMUNITY INFORMATION FOR PT TO FOLLOW UP UPON DISCHARGE. INFORMATION DISCUSSED PAGE BY PAGE FOR PT KNOWLEDGE OF INFORMATION AVAILABLE IN THE COMMUNITY FOR SELF PAY/LOW COST PATIENTS.
--- NOTE | 2018-08-21 10:45 | NUR ---
patient dc home with all written prescriptions and belongings. pt educated on all medications. pt verbalized understanding of medications at discharge. pt also verbalized understanding of importance to f/u with pcp in one week per MD order. patient declined for this author to call and schedule appt for him. pt states he will call today and make appt. patient follows [address] [id number]
--- NOTE | 2018-08-21 12:57 | Progress Note ---
DATE: 08/21/2018 Cardiology Progress Note SUBJECTIVE: No major events overnight. Plan for discharge today. OBJECTIVE: VITAL SIGNS: Temperature afebrile, pulse 68, respiratory rate 18, blood pressure 132/43, and saturating 97% on room air. GENERAL: Obese man, in no acute distress. CARDIOVASCULAR: Regular rate and rhythm. No murmurs, rubs, or gallops. LUNGS: Clear to auscultation bilaterally. ABDOMEN: Soft, nontender, and nondistended. NEURO AND PSYCH: Alert and oriented to person, place, and time. Normal affect. CARDIOVASCULAR MEDICATIONS: Reviewed. LABORATORY DATA: Reviewed. TELEMETRY DATA: Reviewed, shows normal sinus rhythm. ASSESSMENT AND PLAN: 1. Acute on chronic diastolic heart failure. 2. Leukocytosis. 3. Volume overload. 4. Hypertension. 5. Obesity. 6. Venous insufficiency. RECOMMENDATIONS: Doing well from cardiovascular standpoint on oral diuretics. Plan for discharge today with followup as an outpatient two weeks post discharge for management of his chronic lower extremity edema and venous insufficiency. Thank you for this consult. We will continue to follow. MD HANNY Robertson/FRANNY /[id number]
== END 2018-08-21 09:55 | disposition home or self-care (01) | DRG 291 ==
LOC: ER 10:09 → EDSEX 10:09 → ERHOLD 13:55 → ICU 20:08 → IMCU 08-17 21:55 → ICU 08-20 18:28
PROVIDERS: ADMIT Internal Medicine; ATTEND Internal Medicine
DX: I11.0 Hypertensive heart disease with heart failure (principal); J18.9 Pneumonia, unspecified organism; I50.33 Acute on chronic diastolic (congestive) heart failure; E78.5 Hyperlipidemia, unspecified; E11.9 Type 2 diabetes mellitus without complications
CPT/HCPCS: 36415; 36600; 51700; 71045; 71250; 80048; 80053; 81001; 82044; 82550; 82553; 82784; 82785; 82805; 82948; 83036; 83540; 83605; 83735; 83880; 84443; 84466; 84484; 85025; 85610; 85730; 87040; 87070; 87086; 87116; 87205; 87206; 90732; 93005; 93306; 94640; 94660; 99284; J0360; J0696; J1650; J1940; J3411; J7050

== ENCOUNTER 2024-02-25 19:08 | Emergency (ER) | payer OTHER ==
[~2024-02-25] VITALS: Ht 170.2 cm; Wt 136.1 kg
[~2024-02-25 19:08] MED LIST: CIPRO500 MG PO; LASIX20 MG PO; METFORMIN HCL500 MG PO; METOPROLOL SUCC50 MG PO
[2024-02-25 19:15] VITALS: PULSE 66; RESP 18; TEMP 99
[2024-02-25 20:00] VITALS: BP 185/83; PULSE 66; RESP 18; TEMP 99; O2SAT 97
== END 2024-02-25 20:00 | disposition home or self-care (01) ==
LOC: FSED 19:20
DX: N28.9 Disorder of kidney and ureter, unspecified (principal); E11.65 Type 2 diabetes mellitus with hyperglycemia; I10 Essential (primary) hypertension; E66.01 Morbid (severe) obesity due to excess calories
CPT/HCPCS: 80048; 93005; 99282

== ENCOUNTER 2024-12-11 18:00 | Inpatient (IN) | payer OTHER ==
[~2024-12-11] VITALS: Ht 170.2 cm; Wt 132.0 kg
[2024-12-11] MEDS ORDERED: HYGROTON25 MG PO (18:56)
[2024-12-11] MEDS ORDERED: COREG12.5 MG PO (18:56)
[2024-12-11] MEDS ORDERED: ASPIRIN EC81 MG PO (18:56)
[2024-12-11] MEDS ORDERED: GLYBURIDE5 MG PO (18:56)
[2024-12-11] MEDS ORDERED: LISINOPRIL10 MG PO (18:56)
[2024-12-11] MEDS ORDERED: VENTOLIN HFA18 GM INH (18:56)
[2024-12-11] MEDS ORDERED: SYMBICORT 16010.2 GM INH (18:56)
[2024-12-11] MEDS ORDERED: ONDANSETRON HCL INJ 2MG/ML 2ML 2 MG/ML VIAL IV PRN (22:30)
[2024-12-11] MEDS ORDERED: Morphine 4mg INJECTION 4 MG/ML INJ IV PRN (22:30)
[2024-12-11 23:10] VITALS: PULSE 58; RESP 16; TEMP 98.7
[2024-12-12] VITALS (9 sets, daily range): BP systolic 102–158; BP diastolic 48–76; PULSE 52–79; RESP 18–23; TEMP 98.1–98.6; O2SAT 96–100
[2024-12-12] MEDS: SOD POLYSTYRENE SULFONATE SUSP 15 GM/60 ML BTL PO ONE ×2 (01:24→03:09)
[2024-12-12] MEDS: ENOXAPARIN SODIUM INJ 100 MG/ML SYR SC SCH (01:25)
[2024-12-12] MEDS: ASPIRIN 325 MG TAB PO ONE ×2 (01:25→03:09)
[2024-12-12] MEDS ORDERED: FUROSEMIDE40 MG PO (01:59)
[2024-12-12] MEDS ORDERED: GLYBURIDE1.25 MG PO (01:59)
[2024-12-12] MEDS: ALBUTEROL SULF 0.083% NEB SOLN 3 ML NEB NEB SCH (11:00)
[2024-12-12] MEDS ORDERED: DEXTROSE 50% SYRINGE 50 ML IV PRN ×2 (12:00→15:30)
[2024-12-12 12:01] LABS: BASOPHILS % 0.6 % (0.0-1.0); EOSINOPHILS % 8.7 % (0.0-6.0); LYMPHOCYTES % 14.0 % (18.0-39.1); MONOCYTES % 9.2 % (4.4-11.3); NEUTROPHILS % 67.2 % (38.7-80.0); RED CELL DISTRIBUTION WIDTH 13.7 % (11.7-14.4)
[2024-12-12] MEDS: CHLORTHALIDONE 25 MG TAB PO SCH (12:13)
[2024-12-12] MEDS: CARVEDILOL 12.5 MG TAB PO SCH ×2 (12:13→20:00)
[2024-12-12] MEDS: LISINOPRIL 10 MG TAB PO SCH (12:13)
[2024-12-12 12:18] LABS: EST GLOMERULAR FILTRATION RATE 40.0 ML/MIN (>=60)
[2024-12-12] MEDS: INSULIN REGULAR, HUMAN 100 UNIT/1 ML SQ SCH (16:30)
[2024-12-12] MEDS: INSULIN LISPRO 100 UNIT/1 ML 3ML VIAL SQ SCH (16:30)
[2024-12-12] MEDS: METHYLPREDNISOLONE SOD SUCC 125 MG/2ML VIAL IV ONE (18:12)
[2024-12-12] MEDS: FUROSEMIDE 40 MG TAB PO SCH (18:12)
[2024-12-12] MEDS: BUDESONIDE/FORMOTEROL 160/4.5MCG INHALER INH SCH (19:17)
[2024-12-13] VITALS (11 sets, daily range): BP systolic 150–164; BP diastolic 43–59; PULSE 53–69; RESP 17–21; TEMP 97.7–98.4; O2SAT 94–100
[2024-12-13 06:10] LABS: BASOPHILS % 0.1 % (0.0-1.0); EOSINOPHILS % 0.0 % (0.0-6.0); LYMPHOCYTES % 6.6 % (18.0-39.1); MONOCYTES % 0.7 % (4.4-11.3); NEUTROPHILS % 91.5 % (38.7-80.0); RED CELL DISTRIBUTION WIDTH 13.4 % (11.7-14.4)
[2024-12-13 08:22] LABS: EST GLOMERULAR FILTRATION RATE 40.0 ML/MIN (>=60)
[2024-12-13] MEDS: ASPIRIN 81 MG ENTERIC COATED PO SCH (08:29)
[2024-12-13] MEDS ORDERED: ASPIRIN 81 MG ENTERIC COATED PO SCH (09:00)
[2024-12-13] MEDS: METHYLPREDNISOLONE SOD SUCC 40 MG/ML VIAL 1ML IV ONE (10:07)
[2024-12-13] MEDS: SODIUM CHLORIDE 0.9% 1000ML 1,000 ML IV SCH (12:47)
[2024-12-14] VITALS (8 sets, daily range): BP systolic 141–153; BP diastolic 32–57; PULSE 49–85; RESP 17–20; TEMP 97.3–98; O2SAT 67–100
[2024-12-14 13:16] LABS: BASOPHILS % 0.5 % (0.0-1.0); EOSINOPHILS % 0.9 % (0.0-6.0); LYMPHOCYTES % 18.6 % (18.0-39.1); MONOCYTES % 6.2 % (4.4-11.3); NEUTROPHILS % 72.8 % (38.7-80.0); RED CELL DISTRIBUTION WIDTH 13.4 % (11.7-14.4)
[2024-12-14 13:39] LABS: EST GLOMERULAR FILTRATION RATE 41.0 ML/MIN (>=60)
[2024-12-14] MEDS ORDERED: CARVEDILOL 12.5 MG TAB PO SCH (20:00)
== END 2024-12-14 17:56 | disposition home or self-care (01) | DRG 291 ==
LOC: FSED 18:27 → ERHOLD 22:22 → MED/SURG3 12-12 00:15
PROVIDERS: ADMIT Internal Medicine; ATTEND Internal Medicine
DX: I13.0 Hypertensive heart and chronic kidney disease with heart failure and stage 1 through stage 4 chronic kidney disease, or unspecified chronic kidney disease (principal); I50.33 Acute on chronic diastolic (congestive) heart failure; J90 Pleural effusion, not elsewhere classified; J44.1 Chronic obstructive pulmonary disease with (acute) exacerbation; Z68.42 Body mass index [BMI] 45.0-49.9, adult; E87.5 Hyperkalemia; E66.01 Morbid (severe) obesity due to excess calories; E11.22 Type 2 diabetes mellitus with diabetic chronic kidney disease; E11.65 Type 2 diabetes mellitus with hyperglycemia; D63.1 Anemia in chronic kidney disease; N18.32 Chronic kidney disease, stage 3b; Z79.82 Long term (current) use of aspirin; Z79.51 Long term (current) use of inhaled steroids; Z79.84 Long term (current) use of oral hypoglycemic drugs; Z87.891 Personal history of nicotine dependence
CPT/HCPCS: 36415; 71046; 78580; 80048; 80053; 82550; 82948; 83880; 84484; 85025; 85379; 93005; 93306; 94799; 99284; A9540; J1650; J2919; J7030